=== PATIENT | female | born 1990 | race Caucasian/White ===

== ENCOUNTER 2022-05-11 05:36 | Outpatient (CLI) | payer SELFPAY ==
[~2022-05-11] VITALS: Ht 165.1 cm; Wt 74.0 kg
[2022-05-11] MEDS ORDERED: LISI20TA26 PO (18:16)
[2022-05-11] MEDS ORDERED: ESCI10TA PO (18:16)
[2022-05-11] MEDS ORDERED: AMLO-250 PO (18:16)
== END 2022-05-11 18:17 | disposition home or self-care (01) ==
LOC: PREOP 05:36
PROVIDERS: ATTEND Obstetrics & Gynecology
DX: Z01.818 Encounter for other preprocedural examination (principal)

== ENCOUNTER 2022-05-18 08:18 | Day surgery (SDC) | payer OTHER ==
[~2022-05-18] VITALS: Ht 165.1 cm; Wt 74.0 kg
[2022-05-18] VITALS (11 sets, daily range): BP systolic 111–150; BP diastolic 55–88
[~2022-05-18 08:18] MED LIST: AMLO-250 PO; ESCI10TA PO; LISI20TA26 PO
[2022-05-18] MEDS ORDERED: ceFAZolin INJECTION 1,000 MG in NS (IVPB) 50 ML IV ONE (08:30)
[2022-05-18] MEDS: LACTATED RINGERS 1,000 ML IV PRN ×2 (09:12→11:55)
[2022-05-18 09:20] LABS: BASOPHILS % (AUTO) 0 % (0-10); EOSINOPHILS # (AUTO) 0.2 10^3/uL (0.0-0.3); EOSINOPHILS % (AUTO) 7 % (0-10); HEMATOCRIT 37 % (35-52); LYMPHOCYTES # (AUTO) 1.3 10^3/uL (1.0-4.0); LYMPHOCYTES % (AUTO) 44 % (12-44); MEAN CORPUSCULAR HEMOGLOBIN 32 pg (25-34); MEAN CORPUSCULAR HGB CONC 35 g/dL (32-36); MEAN CORPUSCULAR VOLUME 91 fL (80-99); MEAN PLATELET VOLUME 10.6 fL (9.0-12.2); MONOCYTES # (AUTO) 0.3 10^3/uL (0.0-1.0); MONOCYTES % (AUTO) 9 % (0-12); NEUTROPHILS # (AUTO) 1.1 10^3/uL (1.8-7.8); NEUTROPHILS % (AUTO) 39 % (42-75); PLATELET COUNT 156 10^3/uL (130-400); WHITE BLOOD COUNT 2.9 10^3/uL (4.3-11.0)
[2022-05-18] MEDS ORDERED: ESTRADIOL VAGINAL CREAM 42.5 GM (ESTRACE) VG ONE (10:10)
[2022-05-18] MEDS ORDERED: BUP/EPI 0.25% 1:200,000 (MARCAINE) 30 ML VIAL ONE (10:10)
[2022-05-18] MEDS ORDERED: SEVOFLURANE (ULTANE) 15 ML INHAL SOLN ONE ×2 (10:21→11:48)
[2022-05-18] MEDS ORDERED: HYDROmorphone 2 MG/ML VIAL (DILAUDID) ONE ×2 (10:21→12:18)
[2022-05-18] MEDS ORDERED: ONDANSETRON 4 MG/2 ML (SDV) Z0FRAN ONE (10:21)
[2022-05-18] MEDS ORDERED: LIDOCAINE PF 2% 5 ML (XYLOCAINE) VIAL ONE (10:21)
[2022-05-18] MEDS ORDERED: MIDAZOLAM 2 MG/2 ML (VERSED) VIAL ONE (10:21)
[2022-05-18] MEDS ORDERED: ROCURONIUM 10 MG/ML 5 ML SYRINGE IV ONE (10:21)
[2022-05-18] MEDS ORDERED: proPOfol 200 MG/20 ML (DIPRIVAN) VIAL IV ONE (10:21)
[2022-05-18] MEDS ORDERED: GLYCOPYRROLATE 0.2 MG/ML (ROBINUL) 2 ML VIAL ONE (11:09)
[2022-05-18] MEDS ORDERED: KETOROLAC 30 MG/ML VIAL ONE (11:33)
[2022-05-18] MEDS ORDERED: SUGAMMADEX 500 MG/5 ML VIAL (BRIDION) IV ONE (11:33)
[2022-05-18] MEDS ORDERED: ESTROGENS CONJ ONE (12:00)
[2022-05-18] MEDS ORDERED: WATER (STERILE) FOR INJECTION 0 ML ONE (12:00)
[2022-05-18] MEDS ORDERED: ONDANSETRON 4 MG/2 ML (SDV) Z0FRAN IVP PRN ×2 (12:00→12:15)
[2022-05-18] MEDS ORDERED: HYDROmorphone 2 MG/ML VIAL (DILAUDID) IV ONE (12:00)
[2022-05-18] MEDS ORDERED: PROMETHAZINE INJ 25 MG/ML (PHENERGAN) AMP IM PRN (12:15)
[2022-05-18] MEDS ORDERED: MEPERIDINE (DEMEROL) INJ 100 MG/ML IM PRN (12:15)
--- NOTE | 2022-05-18 12:15 | Progress Note-Pre Operative ---
Pre-Operative Progress Note Date of Available H&P: May 18, 2022 Date H&P Reviewed: May 18, 2022 Time H&P Reviewed: 12:14 History & Physical: H&P Reviewed, No changes noted Pre-Operative Diagnosis: Menorrhagia/uterine polyps SUPRIYA POWERS MD May 18, 2022 12:15
--- NOTE | 2022-05-18 12:16 | Progress Note-Post Operative ---
Post-Operative Progess Note Surgeon (s)/[employer] Form[employer] Equipment Operator (s) Surgeon SUPRIYA POWERS MD [employer] Forming Equipment Operator: Martha Hightower Pre-Operative Diagnosis Menorrhagia/uterine polyps Post-Operative Diagnosis Same with pathology pending Procedure & Operative Findings Date of Procedure 05/18/22 Procedure Performed/Findings Total laparoscopic hysterectomy with bilateral salpingectomies Anesthesia Type General Estimated Blood Loss Estimated blood loss (mL): Almost none Specimens/Packing Specimens Removed Uterus and fallopian tubes SUPRIYA POWERS MD May 18, 2022 12:16
[2022-05-18] MEDS ORDERED: IBUP-1780 PO (12:17)
[2022-05-18] MEDS ORDERED: OXYC-199 PO (12:17)
[2022-05-18] MEDS ORDERED: DOCU100C37 PO (12:17)
--- NOTE | 2022-05-18 12:18 | Discharge Inst-Surgical ---
Discharge Inst-Surgical Depart Medication/Instructions New, Converted or Re-Newed RX: Transmitted to Pharmacy Consults/Follow Up Orders & Referrals Follow Up Appt: Return to clinic in 1 week for suture removal Call to make follow up appt. for patient in 4 weeks. Activity: Rest for 24 hours, than as tolerated. Wound Care: May remove Band-Aid tomorrow. Replace as desired. Keep incisions clean and dry. Wash daily with soap and water. Please call in RX to patient pharmacy. Diet: As tolerated- shower or tub bathe as desired. No driving for 24 hours, no alcoholic beverages for 24 hours, and nothing per vagina (no tampons, douching, or intercourse) for 8 weeks. Patient to return to the clinic as soon as possible for: Temperature greater than 101F, Severe Pain, Foul discharge from incision or vagina, Excessive Bleeding (more than a period). Activity Activity as Tolerated: No Diet Discharge Diet: No Restrictions SUPRIYA POWERS MD May 18, 2022 12:18
[2022-05-18] MEDS: oxyCODONE/APAP 5/325MG (PERCOCET 5) TABLET PO PRN ×2 (14:17→18:57)
[2022-05-18] MEDS: D5 LR IV SOLUTION 1,000 ML IV SCH (16:34)
[2022-05-18] MEDS: KETOROLAC 30 MG/ML VIAL IV SCH (18:14)
[2022-05-18] MEDS: SIMETHICONE 80 MG (MYLICON) CHEW PO SCH ×2 (18:56→20:58)
[2022-05-19 00:17] VITALS: BP 134/65
[2022-05-19] MEDS: KETOROLAC 30 MG/ML VIAL IV SCH ×2 (00:17→08:09)
--- NOTE | 2022-05-19 00:30 | OPERATIVE REPORT ---
DATE OF SERVICE: 05/18/2022 PREOPERATIVE DIAGNOSIS: Menometrorrhagia with intrauterine/endometrial polyp. POSTOPERATIVE DIAGNOSIS: Menometrorrhagia with intrauterine/endometrial polyp with pathology pending. PROCEDURES: Total laparoscopic hysterectomy with bilateral salpingectomies. DESCRIPTION OF PROCEDURE: With the patient in the supine position, under satisfactory general anesthesia, she was repositioned in the dorsal lithotomy position in the [facility] and prepped and draped in the usual fashion for abdominal and vaginal surgery using da Kalie assistance. Weighted speculum placed in the posterior fornix of vagina, cervix exposed and grasped anteriorly with single tooth tenaculum. The uterus was sounded to 11 cm with uterine sound. The cervix was then serially dilated with Boom dilators to accommodate a JÚNIOR II manipulator, which was placed with a 6 mm x 8 cm uterine probe and 25 mm colpotomy ring. Sutures of #1 Vicryl were placed in the 3 and 9 o'clock position of the cervix to fix the uterus to the manipulator. Royal catheter was placed in the urinary bladder. Tenaculum and speculum were removed and the patient was brought in low dorsal lithotomy position. A 12 mm incision was made 10 cm superior to the umbilicus. Veress needle was placed through that incision into the abdominal cavity. Correct placement confirmed with a water drop test. The abdomen insufflated with 2.4 liters of carbon dioxide and the Veress needle was removed and a 12 mm Optiview laparoscopic port was placed. The abdominal wall was transilluminated and ports of 8 mm were placed 8 cm lateral to the umbilicus through incisions of those sizes. Patient was now placed in Trendelenburg allowing the bowel to spill up out of the pelvis. The d Kalie column was advanced on the patient and docked. The operative instruments were placed in the right and left lateral ports and I retired to the da Kalie console. At the console, using the vessel sealer on the right and bipolar fenestrated grasper on the left, the pelvis was first examined. Both ovaries were normal. The fallopian tube showed some evidence of endosalpingiosis. The uterus was somewhat mottled in appearance consistent with adenomyosis. The balance of the pelvis looked normal. The appendix was identified. It was a normal vermiform appendix. Both ureters were seen to peristalse and were well away from the IP ligaments. The right fallopian tube was grasped and elevated. The mesosalpinx was clamped, cauterized, and divided with the vessel sealer that was continued across to the uteroovarian pedicle, which was clamped, cauterized, and divided as well, as well as the round ligament, the broad ligament and the dissection was carried down on to the cardinal ligament on the right. This allowed for removal of the right fallopian tube eventually with the uterus. The same procedure performed on the left with the same result. The anterior lower uterine segment peritoneum was now divided and the bladder carefully dissected down off the lower uterine segment. Colpotomy incision was started at the 12 o'clock position onto the colpotomy ring that was continued circumferentially until the entire colpotomy ring was exposed and then the uterus with the tubes still attached was extracted through the vagina. The vaginal cuff was closed with a single suture of V-Loc barbed suture in the usual manner without difficulty. Hemostasis was complete. The ureters were seen again to peristalse. At this point, the laparoscopic portion of the procedure was halted. There was no abnormal pathology. There was no bleeding. The operative instruments were removed under direct vision as were the ports. The abdomen was evacuated of the insufflated gas in the process of removing the ports. There was no bleeding from the port sites. The incisions were closed with interrupted nylon sutures. The fascia at the supraumbilical incision was closed with a [id number] suture of 2-0 Vicryl. Speculum was replaced in the vagina. The vaginal cuff was completely hemostatic and completely reapproximated. ____ sponge and needle counts were correct. Blood loss was almost none. The patient tolerated the procedure well and was uneventfully awakened from her general anesthesia and transferred to recovery room in stable condition with plans for discharge home tomorrow. Job ID: [id number] DocumentID: [id number] Dictated Date: 05/18/2022 13:00:34 Chief Gauger Date: 05/19/2022 00:28:00 Dictated By: SUPRIYA POWERS MD
[2022-05-19 03:15] VITALS: BP 136/64
[2022-05-19] MEDS: D5 LR IV SOLUTION 1,000 ML IV SCH (03:25)
--- NOTE | 2022-05-19 07:32 | Anesthesia-General Post-Op ---
General Patient Condition Mental Status/LOC: Same as Preop Cardiovascular: Satisfactory Nausea/Vomiting: Absent Respiratory: Satisfactory Pain: Controlled Complications: Absent Post Op Complications Complications None Follow Up Care/Instructions Patient Instructions None needed. Anesthesia/Patient Condition Patient Condition Patient is doing well, no complaints, stable vital signs, no apparent adverse anesthesia problems. No complications reported per nursing. D/C home per [facility] [place] Criteria: Yes ARIA CARBALLO CRNA May 19, 2022 07:32
[2022-05-19 08:00] VITALS: BP 127/64
[2022-05-19] MEDS ORDERED: DOCUSATE SODIUM 100 MG (COLACE) CAP PO SCH (09:00)
--- NOTE | 2022-05-19 09:58 | Progress Note ---
Standard Progress Note Progress Notes/Assess & Plan Date Seen by a Provider: May 19, 2022 Time Seen by a Provider: 09:57 Progress/Assessment & Plan This patient is without complaint. She is ambulating, voiding, tolerating oral intake well and has good pain control. Vital Signs Date Time Temp Pulse Resp B/P (MAP) Pulse Ox O2 Delivery O2 Flow Rate FiO2 05/19/22 03:15 36.1 70 18 136/64 (88) 97 Room Air 05/19/22 00:17 36.3 75 18 134/65 (88) 97 Room Air 05/18/22 20:58 36.2 72 18 127/65 (85) 97 Room Air 05/18/22 16:24 36.6 68 18 113/55 (74) 98 Nasal Cannula 1.00 05/18/22 13:15 36.6 76 18 114/55 (74) 90 Room Air 05/18/22 12:52 Room Air 05/18/22 12:50 36.7 16 115/74 (88) 92 Room Air 05/18/22 12:40 Room Air 05/18/22 12:40 36.7 18 111/67 (82) 95 Room Air 05/18/22 12:30 18 111/64 (80) 95 Room Air 05/18/22 12:25 OxyMask 2.00 05/18/22 12:20 17 118/68 (85) 100 OxyMask 2.00 05/18/22 12:10 20 121/80 (94) 100 OxyMask 4.00 05/18/22 12:10 OxyMask 4.00 05/18/22 12:00 18 115/62 (79) 100 OxyMask 6.00 05/18/22 11:55 36.0 16 125/66 (85) 99 OxyMask 8.00 05/18/22 11:55 OxyMask 8.00 I & O 05/19/22 07:00 Intake Total 1950 ml Output Total 2200 ml Balance -250 ml Vital signs are stable. Patient is afebrile. The abdomen is benign Extremities show no clubbing or cyanosis. There is no Homans' sign. Pelvic exam is deferred Assessment and plan Postoperative day #1 doing well. Plan is for discharge home with follow-up in clinic Final Diagnosis Menorrhagia and menometrorrhagia and endometrial polyp SUPRIYA POWERS MD May 19, 2022 09:58
[2022-05-19 11:05] VITALS: BP 127/64
[2022-05-19] MEDS ORDERED: IBUPROFEN 800 MG (MOTRIN) TAB PO SCH (12:15)
== END 2022-05-19 11:05 | disposition home or self-care (01) ==
LOC: SDC 08:18 → WS 12:59 → SDC 05-19 11:05
PROVIDERS: ATTEND Obstetrics & Gynecology
DX: N84.0 Polyp of corpus uteri (principal)
CPT/HCPCS: 36415; 84703; 85025; 87081; 94664